=== PATIENT | male | born 1950 | race Two or more races ===

== ENCOUNTER 2020-06-02 10:37 | Outpatient (CLI) | payer OTHER ==
[2020-07-31] MEDS ORDERED: TAMS0.4C PO (15:53)
[2020-07-31] MEDS ORDERED: BACTRIM DS TAB1 EACH PO (15:55)
== END 2020-06-02 10:43 | disposition home or self-care (01) ==
LOC: RAD 10:37
PROVIDERS: ATTEND Urology
DX: N20.1 Calculus of ureter (principal); K76.89 Other specified diseases of liver

== ENCOUNTER → 2020-07-21 | Outpatient (CLI) | payer OTHER ==
[~2020-07-21] MED LIST: BACTRIM DS TAB1 EACH PO; FENOFIBRATE160 MG; OMEGA-3 ACID ETH1 GM; PROBIOTIC1 EAC2 PO; QUESTRAN PACKET4 GM PO; TAMS0.4C PO
== END | disposition home or self-care (01) ==
LOC: TOM 14:52
PROVIDERS: ATTEND Urology
DX: N20.1 Calculus of ureter (principal); N40.1 Benign prostatic hyperplasia with lower urinary tract symptoms; F52.21 Male erectile disorder; E29.1 Testicular hypofunction

== ENCOUNTER 2020-08-03 13:25 | Inpatient (IN) | payer OTHER ==
[~2020-08-03] VITALS: Ht 180.3 cm; Wt 77.1 kg
[~2020-08-03 13:25] MED LIST changes: -FENOFIBRATE160 MG; -OMEGA-3 ACID ETH1 GM; -PROBIOTIC1 EAC2 PO; -QUESTRAN PACKET4 GM PO
[2020-08-07] MEDS ORDERED: PROBIOTIC1 EAC2 PO (11:46)
[2020-08-07] MEDS ORDERED: QUESTRAN PACKET4 GM PO (11:47)
[2020-08-12] MEDS ORDERED: FENOFIBRATE160 MG (14:06)
[2020-08-12] MEDS ORDERED: OMEGA-3 ACID ETH1 GM (14:06)
== END 2020-08-14 09:47 | disposition home or self-care (01) | DRG 667 ==
LOC: SURH 08-12 09:45 → O/R 08-12 12:02 → SURH 08-12 19:07
PROVIDERS: ADMIT Urology; ATTEND Urology
PROC: 0TF Urinary System, Fragmentation (ICD-10-PCS; 2020-08-12)
PROC: 0VT08ZZ Resection of Prostate, Via Natural or Artificial Opening Endoscopic (ICD-10-PCS; principal; 2020-08-12 11:30)
DX: N21.0 Calculus in bladder (principal); N40.0 Benign prostatic hyperplasia without lower urinary tract symptoms; F52.21 Male erectile disorder

== ENCOUNTER 2022-08-30 07:38 | Outpatient (CLI) | payer OTHER ==
[~2022-08-30 07:38] MED LIST changes: +FENOFIBRATE160 MG; +OMEGA-3 ACID ETH1 GM; +PROBIOTIC1 EAC2 PO; +QUESTRAN PACKET4 GM PO
== END 2022-08-30 07:42 | disposition home or self-care (01) ==
LOC: TOM 07:38
PROVIDERS: ATTEND Urology
DX: N21.0 Calculus in bladder (principal); N40.1 Benign prostatic hyperplasia with lower urinary tract symptoms; F52.21 Male erectile disorder; E29.1 Testicular hypofunction; R31.0 Gross hematuria